=== PATIENT | female | born 1955 | race Caucasian/White ===

== ENCOUNTER → 2016-10-01 | Outpatient (CLI) | payer OTHER ==
--- NOTE | 2016-10-02 08:23 | REP ---
MRI CERVICAL SPINE WITHOUT CONTRAST: HISTORY: Neck and left shoulder pain. A disc bulge with associated osteophyte formation is present at the C4-5 level. There is mild effacement of the thecal sac without spinal cord compression. Bilateral uncinate process and right facet hypertrophy are present. These findings produce minimal narrowing of the C4 neural foramina. A disc bulge with associated osteophyte formation is present at the C5-6 level. There is mild effacement of the thecal sac without spinal cord compression. Bilateral uncinate process hypertrophy is present. This produces minimal and mild narrowing of the right and left C5 neural foramina respectively. A disc bulge is present at the C6-7 level. There is minimal effacement of the thecal sac without spinal cord compression. Bilateral uncinate process hypertrophy is present. This produces minimal narrowing of the C6 neural foramina. There is no other disc bulge or herniation. The remaining neural foramina are patent. The spinal cord is normal in signal intensity. There is no intradural extramedullary lesion. The C4-5 through C6-7 intervertebral discs are decreased in height consistent with disc degeneration. Normal signal intensity is present in the cervical vertebral bodies. IMPRESSION: There is cervical spondylosis at the C4-5 through C6-7 levels without spinal cord compression. Signed by Dc Murphy MD 10/02/2016 08:24 A
--- NOTE | 2016-10-02 08:25 | REP ---
MRI THORACIC SPINE WITHOUT CONTRAST: HISTORY: Radiculopathy. There is no disc bulge or herniation. The spinal canal and the neural foramina are patent. The spinal cord is normal in signal intensity. There is no intradural extramedullary lesion. Normal signal intensity is present in the thoracic vertebral bodies. IMPRESSION: There is no disc bulge or herniation. Signed by Dc Murphy MD 10/02/2016 08:31 A
== END ==
LOC: M RAD 16:10
PROVIDERS: ATTEND Emergency Medicine
DX: M54.12 Radiculopathy, cervical region (principal)

== ENCOUNTER → 2017-02-19 | Outpatient (CLI) | payer OTHER, MEDICAID ==
--- NOTE | 2017-02-19 12:11 | REPMRS ---
Patient History The patient states she had a clinical breast exam in 02/2017. Patient is postmenopausal. Family history of colorectal cancer in mother at age 50 or over. Digital Woman Screen Mammo: February 19, 2017 - Exam #: [id number] Bilateral CC and MLO view(s) were taken. Technologist: Maura Lockhart Technologist Prior study comparison: February 16, 2016, digital woman screen mammo performed at [facility]. February 15, 2015, digital woman screen mammo performed at [facility]. February 15, 2014, digital woman screen mammo performed at [facility]. FINDINGS: There are scattered fibroglandular densities. There has been no change in the appearance of the mammogram from the prior studies. There is a mild amount of scattered fibroglandular density which is fairly symmetric. There is no interval development of dominant mass, architectural distortion, or clustered microcalcification suggestive of malignancy. ASSESSMENT: BI-RADS/ACR category 1 mammogram. Negative. Recommendation Routine screening mammogram in 1 year (for women over age 40). This mammogram was interpreted with the aid of an FDA-approved computer-aided dectection system. Electronically Signed By: Alexander Olmos MD 02/19/17 [id number]
== END ==
LOC: M WHC 10:16
PROVIDERS: ATTEND Nurse Practitioner Women's Health
DX: Z12.31 Encounter for screening mammogram for malignant neoplasm of breast (principal)

== ENCOUNTER → 2017-02-19 | Outpatient (REF) | payer OTHER, MEDICAID | LOC: M SFHCWAGY 10:39 | PROVIDERS: ATTEND Nurse Practitioner Women's Health | DX: Z12.4 Encounter for screening for malignant neoplasm of cervix (principal); Z12.39 Encounter for other screening for malignant neoplasm of breast ==

== ENCOUNTER → 2018-02-26 | Outpatient (CLI) | payer OTHER | LOC: M WHC 09:23 | DX: Z12.31 Encounter for screening mammogram for malignant neoplasm of breast (principal) | CPT/HCPCS: 77067 ==

== ENCOUNTER → 2018-02-26 | Outpatient (REF) | payer OTHER ==
[2018-03-01 14:10] LABS: HPV HYBRID CAPTURE II Negative (Negative)
== END ==
LOC: M SFHCWAGY 12:01
DX: Z12.4 Encounter for screening for malignant neoplasm of cervix (principal); R87.610 Atypical squamous cells of undetermined significance on cytologic smear of cervix (ASC-US); N95.2 Postmenopausal atrophic vaginitis
CPT/HCPCS: G0123

== ENCOUNTER → 2019-02-27 | Outpatient (CLI) | payer MEDICARE, OTHER ==
--- NOTE | 2019-02-27 09:45 | REPMRS ---
Patient History The patient states she had a clinical breast exam in 02/2019. Patient is postmenopausal. Family history of colorectal cancer at age 82 in mother. No Hormone Replacement Therapy Digital Woman Screen Mammo: February 27, 2019 - Exam #: [id number] Bilateral CC and MLO view(s) were taken. Technologist: Courtney Wilkerson, Technologist Prior study comparison: February 26, 2018, bilateral digital woman screen mammo performed at [facility]. February 19, 2017, digital woman screen mammo performed at [facility]. February 16, 2016, digital woman screen mammo performed at [facility]. FINDINGS: There are scattered fibroglandular densities. There has been no change in the appearance of the mammogram from the prior studies. There is a mild amount of scattered fibroglandular density which is fairly symmetric. There is no interval development of dominant mass, architectural distortion, or clustered microcalcification suggestive of malignancy. 3-D tomosynthesis shows no additional findings. Assessment: BI-RADS/ACR category 1 mammogram. Negative Mammogram. Recommendation Routine screening mammogram of both breasts in 1 year (for women over age 40). This patient's Lifetime Breast Cancer RIsk is estimated at 6.2 %. This mammogram was interpreted with the aid of an FDA-approved computer-aided dectection system. Electronically Signed By: Alexander Olmos MD 02/27/19 0945
== END ==
LOC: M WHC 08:22
PROVIDERS: ATTEND Nurse Practitioner Women's Health
DX: Z01.419 Encounter for gynecological examination (general) (routine) without abnormal findings (principal); Z12.31 Encounter for screening mammogram for malignant neoplasm of breast; Z78.0 Asymptomatic menopausal state; Z80.0 Family history of malignant neoplasm of digestive organs
CPT/HCPCS: 77063; 77067; G0101

== ENCOUNTER → 2020-02-29 | Outpatient (CLI) | payer MEDICARE, OTHER ==
--- NOTE | 2020-02-29 10:55 | REPMRS ---
Patient History The patient states she has not had a clinical breast exam in over a year. Family history of colorectal cancer at age 82 in mother. No Hormone Replacement Therapy Digital Woman Screen Mammo: February 29, 2020 - Exam #: [id number] Bilateral CC and MLO view(s) were taken. Technologist: Mackenzie Kaminski, Technologist Prior study comparison: February 27, 2019, bilateral digital woman screen mammo performed at [facility]. February 26, 2018, bilateral digital woman screen mammo performed at [facility]. February 19, 2017, digital woman screen mammo performed at [facility]. FINDINGS: There are scattered fibroglandular densities. The Volpara volumetric breast density category is:B. There has been no change in the appearance of the mammogram from the prior studies. There is a mild amount of scattered fibroglandular density which is fairly symmetric. There is no interval development of dominant mass, architectural distortion, or grouped microcalcification suggestive of malignancy. 3-D tomosynthesis shows no additional findings. Assessment: BI-RADS/ACR category 1 mammogram. Negative Mammogram. Recommendation Routine screening mammogram of both breasts in 1 year (for women over age 40). This patient's Lifetime Breast Cancer Risk is estimated at 5.9 %. This mammogram was interpreted with the aid of an FDA-approved computer-aided dectection system. Electronically Signed By: Alexander Olmos MD 02/29/20 [id number]
== END ==
LOC: M WHC 08:21
PROVIDERS: ATTEND Nurse Practitioner Women's Health
DX: Z12.31 Encounter for screening mammogram for malignant neoplasm of breast (principal)

== ENCOUNTER → 2021-04-25 | Outpatient (CLI) | payer MEDICARE, OTHER ==
--- NOTE | 2021-04-25 13:24 | REPMRS ---
Patient History The patient states she had a clinical breast exam in April 2021. Family history of colorectal cancer at age 82 in mother. No Hormone Replacement Therapy Patient states no breast complaints today. Patient has signed MRS History Sheet. Digital Woman Screen Mammo: April 25, 2021 - Exam #: [id number] Bilateral CC and MLO view(s) were taken. Technologist: Hien Hurt, Technologist Prior study comparison: February 29, 2020, bilateral digital woman screen mammo performed at [facility]. February 27, 2019, bilateral digital woman screen mammo performed at [facility]. February 26, 2018, bilateral digital woman screen mammo performed at [facility]. FINDINGS: There are scattered fibroglandular densities. The Volpara volumetric breast density category is:B. There has been no change in the appearance of the mammogram from the prior studies. There is a mild amount of scattered fibroglandular density which is fairly symmetric. There is no interval development of dominant mass, architectural distortion, or grouped microcalcification suggestive of malignancy. 3-D tomosynthesis shows no additional findings. Assessment: BI-RADS/ACR category 1 mammogram. Negative Mammogram. Recommendation Routine screening mammogram of both breasts in 1 year (for women over age 40). This patient's [facility] Lifetime Breast Cancer Risk is estimated at 5.6 %. This mammogram was interpreted with the aid of an FDA-approved computer-aided dectection system. Electronically Signed By: Alexander Olmos MD 04/25/21 0869
== END ==
LOC: M WHC 08:17
PROVIDERS: ATTEND Nurse Practitioner Women's Health
DX: Z01.419 Encounter for gynecological examination (general) (routine) without abnormal findings (principal); Z12.31 Encounter for screening mammogram for malignant neoplasm of breast; Z80.0 Family history of malignant neoplasm of digestive organs
CPT/HCPCS: 77063; 77067; G0101

== ENCOUNTER → 2021-05-04 | Outpatient (CLI) | payer MEDICARE, OTHER | LOC: M LABSMTC 11:15 | DX: Z01.812 Encounter for preprocedural laboratory examination (principal); Z20.822 Contact with and (suspected) exposure to COVID-19 ==

== ENCOUNTER → 2023-04-29 | Outpatient (CLI) | payer MEDICARE, OTHER | LOC: M WHC 07:31 | PROVIDERS: ATTEND Nurse Practitioner Family | DX: Z01.419 Encounter for gynecological examination (general) (routine) without abnormal findings (principal); Z12.31 Encounter for screening mammogram for malignant neoplasm of breast; N95.2 Postmenopausal atrophic vaginitis | CPT/HCPCS: 77063; 77067; G0101 ==

== ENCOUNTER → 2024-06-22 | Outpatient (CLI) | payer MEDICARE, OTHER | LOC: M WHC 10:58 | PROVIDERS: ATTEND Nurse Practitioner Family | DX: Z12.31 Encounter for screening mammogram for malignant neoplasm of breast (principal); R92.323 Mammographic fibroglandular density, bilateral breasts ==

== ENCOUNTER → 2025-06-24 | Outpatient (CLI) | payer MEDICARE, OTHER | LOC: M WHC 13:58 | PROVIDERS: ATTEND Nurse Practitioner Family | DX: Z12.31 Encounter for screening mammogram for malignant neoplasm of breast (principal); R92.323 Mammographic fibroglandular density, bilateral breasts ==